=== PATIENT | female | born 1990 | race Caucasian/White ===

== ENCOUNTER 2016-10-29 22:29 | Emergency (ER) | payer MEDICAID ==
[2016-10-30] MEDS ORDERED: CEFTRIAXONE 1 GM VIAL ONE (00:31)
[2016-10-30] MEDS ORDERED: ONDANSETRON 4 MG VIAL ONE (00:31)
[2016-10-30] MEDS ORDERED: SODIUM CHLORIDE 0.9% 100 ML IV ONE (00:32)
[2016-10-30] MEDS ORDERED: SODIUM CHLORIDE 0.9% 1,000 ML ONE (00:32)
[2016-10-30] MEDS ORDERED: KETOROLAC 30 MG/ML VIAL ONE (00:32)
== END 2016-10-30 02:01 | disposition home or self-care (01) ==
LOC: ER 22:29
DX: R19.7 Diarrhea, unspecified (principal); N30.01 Acute cystitis with hematuria; B34.9 Viral infection, unspecified
CPT/HCPCS: 36415; 74022; 80053; 81001; 83690; 84703; 85025; 87088; 96361; 96365; 96375